=== PATIENT | male | born 1995 | race Caucasian/White ===

== ENCOUNTER 2020-02-14 15:27 | Emergency (ER) | payer SELFPAY ==
[~2020-02-14] VITALS: Ht 167.6 cm; Wt 67.6 kg
[2020-02-14 15:33] VITALS: BP 115/78
== END 2020-02-14 16:42 | disposition home or self-care (01) ==
LOC: ER 15:33
DX: Z02.79 Encounter for issue of other medical certificate (principal); J06.9 Acute upper respiratory infection, unspecified